=== PATIENT | male | born 1960 | race Caucasian/White ===

== ENCOUNTER 2021-10-27 12:29 | Emergency (ER) | payer OTHER ==
[~2021-10-27] VITALS: Ht 167.6 cm; Wt 90.7 kg
[2021-10-27 12:29] VITALS: BP 153/72
--- NOTE | 2021-10-27 12:29 | NUR ---
ARRIVAL PATIENT ARRIVED TO [facility], C/O RIGHT LEG PAIN FOR THE PAST 2 DAYS, WAS SEEN X2 DAYS AGO IN A [place] ER FOR THIS SYMPTOMS AND A DVT WAS RULED OUT, PAIN CONTINUES TODAY, DECIDED TO COME TO THE ED FOR EVAL, VITAL SIGNS TAKEN AND DOCTOR LEBRON TO THE ROOM TO SEE PATIENT.
--- NOTE | 2021-10-27 12:56 | ER.PDOC ---
General Chief Complaint: Requesting Medical Care Stated Complaint: RIGHT LEG PAIN,NUMBNESS Time seen by MD: 12:55 Source: patient Exam Limitations: no limitations History of Present Illness Initial Comments This 61-year-old white male comes in complaining of pain in his right leg. This all dates back to March of last year when he took a [employer] COVID- vaccine and then developed a clot in his leg. He went and and had a thrombectomy done and a thrombolytic injected directly into the artery. A week later he went back again and had another thrombectomy done. 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 Subsequent to that he said this chronic nerve pain in the left leg that sometimes is severe. Patient is worried that he is got another clot in the leg. He actually went to dialysis yesterday and had ultrasound done of the leg and no clot was shown. Patient comes in here today because of the persistent pain in his leg. His pain is a burning numbness type sensation which is consistent with the nerve injury from his compartment syndrome. Patient is on Lyrica 75mg twice a day. I discussed with him that that is a moderate dose and he may just need to increase it. Explained to him that I personally am on the same medication and take 150 mg twice a day to con trol my nerve pain. Patient has been on the same dose now for over a year. Recommend that he increase it slowly going from 75 mg twice a day to 250 once a day and 70 5 in the afternoon. After for 5 days on that dose he may increase to 250 twice a day as long as there is not having significant side effects. I advised patient that I can write 1 month supply of 150 mg tabs but he will need to get this taken care of by his PCP which actually is in [place]. To Dr. 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 Timing/Duration: other (chronic condition) Severity/Quality: severe, burning, other (numbness) Radiation: other (Pain right distal leg only.) Method of Injury: other (As noted above) Modifying Factors: improves with other (Patient indicates that his leg feels best when he is actually in a seated position with the leg hanging down. It seems to give the most pain at bedtime part of that may be just a loss of distraction of daytime events.) Associated Symptoms: muscle spasms, tingling in legs/feet Prior symptoms/Treatment: Similar symptoms previous, Recenly Seen, Treated by Doctor Allergies: Coded Allergies: hydrocodone (Verified Allergy, Unknown, 10/27/21) Past Medical History Medical History: other (Compartment syndrome right leg, chronic neuropathic pain) Social History Smoking: non-smoker Alcohol Use: none Drug Use: none Review of Systems Constitutional: denies no symptoms reported, denies see HPI, denies chills, denies diaphoresis, denies fever, denies malaise, denies weakness, denies other EENTM: denies no symptoms reported, denies see HPI, denies eye pain, denies blurred vision, denies tearing, denies double vision, denies ear pain, denies ear discharge, denies nose pain, denies nose congestion, denies throat pain, denies throat swelling, denies mouth pain, denies mouth swelling, denies other Respiratory: denies no symptoms reported, denies see HPI, denies cough, denies orthopnea, denies shortness of breath, denies stridor, denies wheezing, denies other Cardiovascular: denies no symptoms reported, denies see HPI, denies chest pain, denies edema, denies palpitations, denies syncope, denies other Gastrointestinal: denies no symptoms reported, denies see HPI, denies abdominal pain, denies constipation, denies diarrhea, denies nausea, denies vomiting, denies other Genitourinary: denies no symptoms reported, denies see HPI, denies discharge, denies dysuria, denies frequency, denies hematuria, denies pain, denies other Musculoskeletal: denies no symptoms reported, denies see HPI, denies back pain, denies gout, denies joint pain, denies joint swelling, denies muscle pain, denies muscle stiffness, denies neck pain, denies other Skin: denies no symptoms reported; see HPI; denies change in color, denies change in hair/nails, denies dryness, denies lesions, denies lumps, denies rash, denies other Psychiatric/Neurological: see HPI, numbness, paresthesia, tingling Physical Exam General Appearance: No Apparent Distress, Obese HEENT: PERRL/EOMI, Normal ENT Inspection, TMs Normal, Pharynx Normal Neck: Non-Tender, Normal Alignment Cardiovascular/Respiratory: Regular Rate, Rhythm, No M/R/G, Normal Peripheral Pulses, No JVD, Normal Breath Sounds, No Respiratory Distress Gastrointestinal: Normal Bowel Sounds, No Organomegaly, No Pulsatile Mass, Non Tender, Soft Back: Normal Inspection Extremities: No Evidence of Injury, Normal Range of Motion (No acute injury), Tenderness (Patient has significant tenderness to palpation of the right distal leg. There is 1-2+ edema. Patient does have his compression sock on) Neuro/Psych: Alert, mobile tester nml/symmetrical, mood/effect nml, antalgic gait, Sensory Deficit Skin: Normal Color, Warm/Dry Results/Orders Results/Orders Vital Signs Date Time Temp Pulse Resp B/P (MAP) Pulse Ox O2 Delivery O2 Flow Rate FiO2 10/27/21 13:18 98.1 95 18 153/72 (99) 94 Room Air* 0 21 10/27/21 13:00 98.1 95 18 153/72 (99) 94 Room Air* 0 21 10/27/21 12:29 98.1 95 18 10/27/21 12:29 98.1 95 18 94 10/27/21 12:29 98.1 95 18 153/72 (99) 94 Room Air* 0 21 ER DEPART Departure Time of Disposition: 13:26 Disposition: 01 HOME / SELF CARE / HOMELESS Impression: Primary Impression: Neuropathic pain of right lower extremity Condition: Stable Referrals: PCP,UNKNOWN (PCP) PRIMARY CARE PROVIDER Comments Lyrica 150 mg tabs, 1 p.o. twice daily, dispense 30. Patient was instructed to slowly increase his 75 mg tabs to the max of the 300 mg/day. Once he is at 300 mg a day then loom changer to 150 mg tabs. Duration or Time Spent with Pa: 20m Return to Work/School Can a patient return to work?: Yes PREMA DIANA MD October 27, 2021 12:56
[2021-10-27 13:00] VITALS: BP 153/72
[2021-10-27 13:18] VITALS: BP 153/72
== END 2021-10-27 13:25 | disposition home or self-care (01) ==
LOC: ER 12:29
DX: G57.91 Unspecified mononeuropathy of right lower limb (principal); Z88.5 Allergy status to narcotic agent; Z98.890 Other specified postprocedural states; Z99.2 Dependence on renal dialysis
CPT/HCPCS: 99283